=== PATIENT | male | born 1955 | race Caucasian/White ===

== ENCOUNTER 2018-07-15 12:44 | Emergency (ER) | payer MEDICARE, MEDICAID ==
[2018-07-15 13:30] VITALS: BP 118/76
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
--- NOTE | 2018-07-15 14:11 | RAD ---
HISTORY: right hip pain COMPARISONS: November 28, 2016 VIEWS: 3 , Frontal view of the pelvis with frontal and frog-leg views of the right hip FINDINGS: BONE DENSITY: Normal. BONES: There is no displaced fracture. JOINTS: There is moderate osteoarthritis of the right hip. ALIGNMENT: There is no dislocation. SOFT TISSUES: Unremarkable. OTHER FINDINGS: None. IMPRESSION: OSTEOARTHRITIS. NO ACUTE OSSEOUS INJURY. IF SYMPTOMS PERSIST, RECOMMEND REPEAT IMAGING.
== END 2018-07-15 14:31 | disposition home or self-care (01) ==
LOC: UCCORT 12:44
DX: S70.01XA Contusion of right hip, initial encounter (principal); S30.0XXA Contusion of lower back and pelvis, initial encounter; W19.XXXA Unspecified fall, initial encounter; Y92.9 Unspecified place or not applicable; M16.11 Unilateral primary osteoarthritis, right hip; Z88.8 Allergy status to other drugs, medicaments and biological substances; Z88.5 Allergy status to narcotic agent
CPT/HCPCS: 99211; G0463

== ENCOUNTER 2019-06-16 11:45 | Inpatient (IN) | payer MEDICARE, MEDICAID ==
--- NOTE | 2019-06-05 23:00 | HP ---
AMENDED REPORT NOW INCLUDES DESIGNATED COSIGNER HISTORY AND PHYSICAL: DATE OF ADMISSION/SURGERY: 06/16/19 DATE OF OFFICE VISIT: 06/05/19 ATTENDING SURGEON: Ileana Espino MD.* (DICTATED BY MAUREEN MEDEIROS) PROCEDURE: Right total hip replacement. CHIEF COMPLAINT: Right hip pain. HISTORY OF PRESENT ILLNESS: Mr. Schmidt is a 64-year-old gentleman who reports of 1-year severe right hip pain, this is a 6 to 7/10 pain in his right groin and lateral hip. He has increased pain with rotating the hip, walking, and standing; decreased pain with antiinflammatories and pain pills in the past. He has tried physical therapy. He has had a hip injection but the pain relief only lasted 10 days. At this point, he failed conservative treatment. He would like to proceed with a total hip arthroplasty. PAST MEDICAL HISTORY: 1. Prior left open tib-fib fracture. 2. Posttraumatic arthritis in the left ankle. 3. PVCs and arrhythmia. 4. History of alcohol abuse. 5. Decreased hearing. 6. Osteoarthritis. 7. Depression. 8. Anxiety. 9. Right renal cyst. 10. Asthma. 11. Diverticulitis. 12. Hiatal hernia. 13. Spinal stenosis. PAST SURGICAL HISTORY: 1. He has had left ankle surgery x8. 2. Appendectomy. 3. Pilonidal cyst. 4. Bilateral hernia repair. 5. Tooth extraction. 6. Cardiac cath in 2002 and 2009. 7. 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 8. Atrial septal defect repair in 2017. 9. 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 MEDICATIONS: 1. Albuterol inhaler 2 puffs up to 4 times a day as needed. 2. Vitamin D high potency 1000 units 1 p.o. daily. 3. Multi Complete daily vitamins. 4. Prilosec OTC. 5. Calcium. 6. Biotin. 7. Fish oil. 8. Cinnamon. ALLERGIES: CODEINE, LATEX, XANAX, and ALCOHOL. FAMILY HISTORY: Positive for coronary artery disease, diabetes, hypertension, cancer, and stroke. SOCIAL HISTORY: He is retired. He lives with his . He is a former smoker of 3 packs per day x24 years, but he quit 30 years ago. History of alcohol abuse. Also quit smoking 32 years ago. No recreational drug use. REVIEW OF SYSTEMS: General: Negative for fevers, chills, night sweats, unexplained weight loss or gain. No known anesthesia problems. HEENT: Negative for headache, lightheadedness, syncopal episodes, visual changes. Integumentary: Negative for abrasions, lesions, open wounds. Cardiothoracic: Positive for palpitations. Negative for hypertension, chest pain, or edema. Respiratory: Positive for shortness of breath on exertion. Negative for chronic cough, wheezing. GI: Negative for nausea, vomiting, diarrhea, constipation. Positive for GERD. : Positive for enlarged prostate. Positive for renal cyst on the right kidney. Negative for nocturia, urinary frequency, urgency, history of UTIs, kidney problems. Musculoskeletal: Positive for right hip pain. Positive for previous lumbar compression fracture. Negative for chronic neck pain. 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 Positive for anxiety. Negative for history of stroke, seizures, poor balance, or depression. Endocrine: Negative for diabetes, thyroid issues. Hematologic: Negative for easy bruising, anemia , bleeding disorders, history of DVT. ID: Negative for history of MRSA, hep C , or HIV. PHYSICAL EXAMINATION GENERAL: Well-developed, well-nourished 64-year-old male in no acute distress. VITAL SIGNS: Height 67 inches, weight 220 pounds. Pulse 70, BP 142/80, respirations 18, temperature 97.8, pain 4, BMI 34.5. HEENT: Normocephalic, atraumatic. PERRLA. Extraocular movements intact. NECK: Supple. No palpable lymph nodes. Throat is clear. PULMONARY: Lungs are clear to auscultation bilaterally. No wheezes, rales, or rhonchi. CARDIO: Regular rate and rhythm. S1 and S2 normal. No murmurs, rubs, or gallops. No edema. ABDOMEN: Positive bowel sounds, soft, nontender. NEUROLOGIC: A and O x3. Cranial nerves II through XII intact. Sensation is intact to light touch. MUSCULOSKELETAL: Right lower extremity: The patient's skin is intact. No abrasions or open wounds. No palpable masses or lymph nodes. Slight tenderness along the trochanteric bursa. Hip flexion is 90 degrees with groin pain, 0 degrees internal rotation, and 30 degrees external rotation with severe groin pain. Decreased sensation along the plantar foot, 5/5 ankle dorsiflexion and plantarflexion strength, and 2+ palpable DP pulse. No edema, varicosities, or hyperreflexia. DIAGNOSTIC STUDIES: Radiographs: Multiple views of the patient's right hip shows advanced arthritis with medial joint space narrowing, osteophyte formation , and subchondral sclerosis. IMPRESSION: Right hip severe osteoarthritis. PLAN: The patient is scheduled to undergo right total hip arthroplasty with Dr. Espino on 06/16/19. Dr. Espino went over the procedure, as well as the risks and benefits with the patient. He elected to proceed. He will return to the office 10 to 14 days postop for followup and suture removal. Upon discharge from the hospital, he will have a prescription for the postoperative pain management. MAUREEN OBRIEN [id number]/CPS #: [id number] MTDKorey
[~2019-06-16 11:45] MED LIST: Buffered Lidocaine 1% SYRIN* 1 ML/SYRINGE INTRADERM ONE; Famotidine IV* 10 MG/ML 2 ML (20 mg) IV ONE; Famotidine IV* 10 MG/ML 2 ML (20 mg) ONE; Gabapentin CAP(*) 300 MG ONE; Gabapentin CAP(*) 300 MG PO ONE; Lactated Ringers 1000 ML Bag* 1,000 ML IV SCH; Midazolam* 1 MG/ML 5 ML VIAL (5 MG) ONE; Tranexamic Acid 1,000 MG in NS 0.9% 50 ML* (outpatient use) IV SCH; ceFAZolin 2 GM in NS PREMIX(*) 2 GM/100 ML BAG IVPB ONE; fentaNYL* 50 MCG/ML 2 ML VIAL (100 MCG VIAL) ONE
--- OUTSIDE RECORDS SUMMARY | 2019-06-16 11:53 | XMS REPORT | Continuity of Care Document ---
:1955 External Reference #:[id number] Author Name Azalea Luisa Care Team Providers Name Role Phone Lalo Fox MD Primary Care Physician Unavailable Payers Date Identification Numbers Payment Provider Subscriber Policy Number: [id number] Medicare John Schmidt PayID: [id number] [address] [place] [address] Expires: 2018 PayID: [id number] Medicare John Schmidt [address] [place] [address] Effective: 2007 Policy Number: [id number] Medicare John Schmidt Expires: 2018 PayID: [id number] [address] [place] [address] Policy Number: [id number] Medicaid John Schmidt PayID: [id number] [address] [place] [address] Problems Active Problems Provider Date Localized, primary osteoarthritis of the pelvic Ileana Tere Espino Onset: 05/2018 region and thigh Neck pain Lalo Layne M.D. Onset: 05/14/2016 Degeneration of lumbar intervertebral disc Lalo Layne M.D. Onset: 2015 Family History Date Family Member(s) Observation Comments General Heart Disease General Diabetes General Hypertension General Stroke General Cancer : (age 43 Father due to CHF history of 2 MIs and Years) ETOH abuse,diabetes : (age 62 Mother due to Cancer Years) Maternal Uncles [place] stroke Social History Type Date Description Comments Sex Unknown Marital Status Significant Other Lives With Spouse Occupation Retired ETOH Use Recovering alcoholic Tobacco Use Start: Unknown End: Patient is a former quit 34 yrs ago Unknown smoker Recreational Drug Use Denies Drug Use Smoking Status Reviewed: 06/05/19 Patient is a former quit 34 yrs ago smoker Exercise Type/Frequency Does not exercise Allergies, Adverse Reactions, Alerts Active Allergies Reaction Severity Comments Date Codeine rash 09/29/2008 Latex rash-red streaking 09/29/2008 Xanax 09/29/2008 Alcohol 10/17/2018 Medications Active Medications SIG Qnty Indications Ordering Date Provider Hospital Bed 1 hospital bed s/p 1units Ileana Espino, 05/25/2019 hip replacement dx: Tere z47.1 67" 215lbs Knee Scooter use as needed for M19.172 Prasad Gonzalez, 02/06/2019 non-weightbearing M.Vale Albuterol Inhaler 2 Puffs Up To qid 3units Emilia S. 11/17/2008 prn Tere Kelly Vitamin D High 1 by mouth every Unknown Potency day 1000Unit Capsules Multi Complete daily Unknown Capsules Prilosec OTC Unknown Calcium Unknown Biotin Unknown Fish Oil Unknown Cinnamon Unknown History Medications Ativan 1 po tid prn 90tabs Emilia S. 05/05/2009 - 1mg Tablets Tere Kelly 06/04/2019 Metoprolol 1 PO bid 180tabs Ronnataaparna S. 12/17/2008 - 12.5mg Tere Kelly 12/17/2008 Tablets ER Metoprolol 1 PO qd Emilia S. 12/17/2008 - 12.5mg Tere Kelly 01/13/2009 Tablets ER Naprosyn 1 PO bid 50tabs Ronnataybbrandon S. 09/29/2008 - 500mg Tablets Tere Kelly 01/13/2009 Tylenol prn 100tabs Ronnataybbrandon S. 09/29/2008 - 325mg Tablets Tere Kelly 01/13/2009 Paxil 1 po qd 30tabs Unknown - 20mg Tablets 05/14/2016 Vital Signs Date Vital Result Comment 06/05/2019 8:59am Height 67 inches 5'7" Weight 220.00 lb Heart Rate 70 /min BP Systolic 142 mmHg BP Diastolic 80 mmHg Respiratory Rate 18 /min Body Temperature 97.0 F Pain Level 4 BMI (Body Mass Index) 34.5 kg/m2 12/02/2018 8:25am Height 67 inches 5'7" Heart Rate 74 /min BP Systolic 130 mmHg BP Diastolic 78 mmHg Body Temperature 97.5 F Pain Level 8 10/31/2018 9:54am Height 67 inches 5'7" Weight 214.38 lb Heart Rate 67 /min BP Systolic 118 mmHg BP Diastolic 78 mmHg Respiratory Rate 20 /min Pain Level 7 BMI (Body Mass Index) 33.6 kg/m2 10/17/2018 9:23am Height 67 inches 5'7" Weight 223.00 lb Heart Rate 76 /min BP Systolic 122 mmHg BP Diastolic 76 mmHg Body Temperature 97.6 F Pain Level 8 BMI (Body Mass Index) 34.9 kg/m2 05/14/2016 9:29am Height 67 inches 5'7" Weight 208.00 lb Heart Rate 78 /min BP Systolic Sitting 120 mmHg BP Diastolic Sitting 80 mmHg Pain Level 4 BMI (Body Mass Index) 32.6 kg/m2 03/31/2015 1:03pm Height 67 inches 5'7" Weight 213.00 lb Heart Rate 65 /min BP Systolic 128 mmHg BP Diastolic 79 mmHg Pain Level 7 BMI (Body Mass Index) 33.4 kg/m2 03/18/2015 11:20am Height 67 inches 5'7" Weight 213.00 lb Pain Level 6 BMI (Body Mass Index) 33.4 kg/m2 12/10/2014 10:08am Height 67 inches 5'7" Weight 213.00 lb Heart Rate 75 /min BP Systolic Sitting 126 mmHg BP Diastolic Sitting 76 mmHg Pain Level 7 BMI (Body Mass Index) 33.4 kg/m2 05/05/2009 1:24pm Weight 200.00 lb Heart Rate 80 /min BP Systolic Sitting 120 mmHg BP Diastolic Sitting 82 mmHg Respiratory Rate 16 /min 04/06/2009 4:23pm Weight 203.00 lb Heart Rate 62 /min BP Systolic Sitting 110 mmHg BP Diastolic Sitting 70 mmHg Respiratory Rate 16 /min 01/13/2009 9:07am Weight 202.00 lb Heart Rate 72 /min BP Systolic Sitting 130 mmHg BP Diastolic Sitting 80 mmHg Respiratory Rate 16 /min 11/17/2008 8:39am Height 67 inches 5'7" Weight 222.00 lb Heart Rate 76 /min BP Systolic Sitting 130 mmHg R BP Diastolic Sitting 80 mmHg R BMI (Body Mass Index) 34.8 kg/m2 09/29/2008 10:38am Height 67 inches 5'7" Weight 217.00 lb Heart Rate 89 /min BP Systolic Sitting 124 mmHg R BP Diastolic Sitting 80 mmHg R BMI (Body Mass Index) 34.0 kg/m2 Results Test Date Facility Test Result H/L Range Note Laboratory test 11/28/2018 [facility] Erythrocyte Sed 10 mm/Hr N 0-[address] [place] [address] [phone] C Reactive Protein 4.60 mg/L N <8.01 Procedures Date Code Description Status 03/18/2017 31574 Holter Monitor Review (24 hr) review & interp only Completed 03/12/2017 83531 ECG Monitor/Recording W/Visual Superimposition Scanning Completed 05/18/2009 62271 Mobile Cardiovascular Telemetry Over 24 HR Up To 30 Days Completed 04/21/2009 62104 Mobile Cardiovascular Telemetry Over 24 HR Up To 30 Days Completed 04/06/2009 12009 EKG Tracing & Interpretation Completed 01/13/2009 86591 EKG Tracing & Interpretation Completed 01/04/2009 41652 Color Doppler Completed 01/04/2009 56053 Pulse Doppler & Continuous Wave Completed 01/04/2009 86713 Echocardiogram Completed 01/04/2009 04619 ECHO Transthoracic, Real-Time 2D With Doppler And Color Completed Flow 12/14/2008 99071 Stress Test Supervsn W/Out I/R Completed 12/14/2008 86318 Treadmill Interp/Report Only Completed 12/14/2008 27599 Treadmill Interp/Report Only Completed 11/17/2008 80011 Holter Monitor Interpretation Completed 11/05/2008 38392 Color Doppler Completed 11/05/2008 14605 Pulse Doppler & Continuous Wave Completed 11/05/2008 43311 Pulse Doppler & Continuous Wave Completed 11/05/2008 60604 Echocardiogram Completed 09/29/2008 58668 EKG Tracing & Interpretation Completed 09/29/2008 21103 EKG Tracing & Interpretation Completed Encounters Type Date Location Provider Dx Diagnosis Office Visit 12/02/2018 [facility] Prasad Gonzalez, M19.172 Post-traumatic 8:15a [facility] oste[facility], left ankle and foot Office Visit 10/31/2018 Orthopedic Ileana Espino, M25.551 Pain in right hip 9:30a [facility] M16.11 Unilateral primary osteoarthritis, right hip M19.172 Post-traumatic osteoarthritis, left ankle and foot Office Visit 10/30/2018 Orthopedic Prasad M19.172 Post-traumatic 10:45a [facility] osteoarthritis, left C.M.A. ankle and foot Office Visit 10/17/2018 Orthopedic Prasad M16.11 Unilateral primary 9:00a [facility] osteoarthritis, C.M.A. right hip M19.172 Post-traumatic osteoarthritis, left ankle and foot Office Visit 05/14/2016 Neurosurgery Lalo M51.36 Other 9:15a [facility] M.D. intervertebral disc degeneration, lumbar region M54.2 Cervicalgia Office Visit 03/31/2015 1:00p Orthopedic Ileana Espino, 840.4 Sp[facility] Strains Rotator Cuff (Capsule) 719.41 Pain Joint Shoulder Region Office Visit 03/18/2015 11:15a Orthopedic Ileana Espino 840.4 [facility] Strains Rotator Cuff (Capsule) Office Visit 12/10/2014 9:45a Orthopedic Ileana Espino, 719.41 Pain Joint [facility] .DLaura Shoulder Region [place] 840.4 Sprains & Strains Rotator Cuff (Capsule) 715.00 Osteoarthrosis Generalized Site Unspec Office Visit 08/12/2012 10:00a Arabella Sheehan 728.87 Muscle Weakness [facility]rolog[facility] [place] 782.0 Skin Sensation Disturbance 724.2 Lumbago Office Visit 05/05/2009 1:20p [facility] Qutaybeh S. 785.1 Palpitations Tere Kelly 785.0 Tachycardia Unspec Office Visit 04/06/2009 4:10p [facility] Qutaybeh S. 785.1 Palpitations Tere Kelly 785.0 Tachycardia Unspec 427.69 Premature Beats Other Office Visit 01/13/2009 9:00a [facility] Qutaybeh S. 785.1 Palpitations Tere Kelly 786.50 Pain Chest Unspec 785.0 Tachycardia Unspec 745.5 Atrial Septal Defect Ostium Secundum Type Office Visit 11/17/2008 8:40a [facility] Qutaybeh S. 785.1 Palpitations Tere Kelly 427.69 Premature Beats Other 785.0 Tachycardia Unspec 427.61 Premature Beats Supraventricular 780.4 Dizziness & Giddiness 745.5 Atrial Septal Defect Ostium Secundum Type Office Visit 09/29/2008 10:20a [facility] Qutaybeh S. 785.1 Palpitations Tere Kelly 794.31 Electrocardiogram (ECG) (EKG) Abnormal 785.0 Tachycardia Unspec 780.4 Dizziness & Giddiness Plan of Treatment Future Appointment(s):06/29/2019 9:15 am - Ileana Espino M.D. at [facility]11/13/2019 2:00 pm - John Valenzuela M.D. at [facility]06/16/2019 12:15 pm - Austin Lang PA-C at [facility]06/16/2019 12:15 pm - DANIA Gallo at [facility]06/16/2019 12:15 pm - Ileana Espino M.D. at [facility]06/05/2019 - Ileana Espino M.D.M16.11 Unilateral primary osteoarthritis, right hipFollow up:10-14 days post-opM25.551 Pain in right hip
[2019-06-16] MEDS ORDERED: Bupivacaine 0.25% W/EPI* 10 ML SDV ONE (13:29)
[2019-06-16] MEDS ORDERED: Rocuronium* 10 MG/ML VIAL ONE ×2 (13:50→14:28)
[2019-06-16] MEDS ORDERED: KETAMINE HCL* 50 MG/ML 10 ML VIAL ONE (13:59)
[2019-06-16] MEDS ORDERED: Ketorolac INJ* 30 MG/ML 1 ML VIAL ONE (14:36)
[2019-06-16] MEDS ORDERED: Ondansetron INJ* 2 MG/ML VIAL ONE (14:36)
[2019-06-16] MEDS ORDERED: Dexamethasone IV* 4 MG/ML 1 ML (4 MG) ONE (14:36)
[2019-06-16] MEDS ORDERED: DiMENhydriNATE IV* 50 MG/ML VIAL ONE (14:36)
[2019-06-16] MEDS ORDERED: Propofol* 10 MG/ML 20 ML BTL ONE ×2 (14:36→16:22)
[2019-06-16] MEDS ORDERED: Succinylcholine* 20 MG/ML 10 ML VIAL ONE (14:36)
[2019-06-16] MEDS ORDERED: Lidocaine 2% PF * 5 ML VIAL ONE (14:36)
[2019-06-16] MEDS ORDERED: HYDROcodone/ACETAMIN 5-325 MG* 1 TAB PO PRN (14:53)
[2019-06-16] MEDS ORDERED: DiMENhydriNATE IV* 50 MG/ML VIAL IV PUSH PRN (14:53)
[2019-06-16] MEDS ORDERED: Levalbuterol 0.63MG/3ML NEB* UNIT OF USE INH PRN (14:53)
[2019-06-16] MEDS ORDERED: Naloxone* 0.4 MG/ML 1 ML VIAL IV PRN (14:53)
[2019-06-16] MEDS ORDERED: HYDROmorphone INJ1* 1 MG/ML SYRINGE ONE ×3 (15:40→18:06)
[2019-06-16] MEDS ORDERED: Midazolam* 1 MG/ML 2 ML VIAL (2 MG) ONE (16:17)
[2019-06-16] MEDS ORDERED: diPHENhydraMINE IV* 50 MG/ML 1 ml VIAL (BENADRYL) IV PRN (16:46)
[2019-06-16] MEDS ORDERED: Bisacodyl SUPP* 10 MG SUPP PR PRN (16:46)
[2019-06-16] MEDS ORDERED: Morphine INJ* 2 MG/ML 1 ML SYRINGE (TWO MG - NEW SYRINGE VERSION) IV PRN (16:46)
[2019-06-16] MEDS ORDERED: Magnesium Hydroxide LIQ* 30 ML UDC PO PRN (16:46)
[2019-06-16] MEDS ORDERED: Ondansetron INJ* 2 MG/ML VIAL IV PRN (16:46)
[2019-06-16] MEDS ORDERED: PTO: Albuterol HFA INHALER* 8 gm MDI INH PRN (16:51)
[2019-06-16] MEDS ORDERED: Albuterol 2.5 MG/3 ML NEB.SOL* (0.083%) INH PRN (16:51)
[2019-06-16] MEDS ORDERED: Mometasone 220 MCG MDI INH PRN (16:51)
[2019-06-16] MEDS ORDERED: Morphine ORAL CONCENTRATE* 5 MG/0.25 ML ORAL.SYRIN PO PRN (16:51)
[2019-06-16] MEDS ORDERED: Lactated Ringers 1000 ML Bag* 1,000 ML IV SCH (17:00)
[2019-06-16] MEDS: HYDROmorphone INJ1* 1 MG/ML SYRINGE IV PRN ×2 (17:01→17:06)
[2019-06-16] MEDS ORDERED: traMADol TAB* 50 MG ONE (18:07)
[2019-06-16] MEDS: traMADol TAB* 50 MG PO PRN (18:10)
--- NOTE | 2019-06-16 19:53 | OP ---
Operative Report - Blank - Operative Report Date of Operation: 06/16/19 Note: DANNY SANDS 1955 Date Of Surgery: 06/16/19 Ileana Espino MD Behavior Specialist: Austin REDDY did help throughout the procedure with preparation of the hip, wound retraction, manipulation of the hip, and wound closure. Anesthesiologist: Chidi Dubois MD Anesthesia Type: General Preoperative Diagnosis: Right severe degenerative osteoarthritis of the hip Postoperative Diagnosis: As above Procedure Performed: Right Total Hip Arthroplasty Complications: None Specimen: Femoral head and acetabular reamings sent to pathology. Hardware used: This is uncemented Sc[place]ey total hip arthroplasty hardware for the femur a size 3 accolade II with 127 neck femoral component, for the acetabulum a size 50 D trident II tritanium cluster hole shell, for the insert a size 32 D trident x3 polyethylene insert, and for the femoral head a size 32 + 8 V40 femoral head. Brief history/Indication: DANNY SANDS was known in clinic and had a history of severe right hip pain. He failed conservative treatment with anti- inflammatories, pain pills, intra-articular injections and physical therapy. He elected to undergo right total hip arthroplasty due to continued pain and decreased quality of life. Radiographs showed severe end stage osteoarthritis of the hip with bone on bone contact. Informed consent was obtained from the patient. He understood the risks of surgery included but were not limited to: bleeding, infection, damage to nearby structures, intraoperative fracture, nerve palsy, failure of the hardware, early loosening, stiffness or loss of motion, dislocation, leg length discrepancy, anesthesia complications, stroke, heart attack, blood clot and . He wished to proceed. Intra-Operative findings: Intraoperatively the patient was noted to have severe loss of cartilage of the acetabulum and femoral head. He had extensive osteophyte formation around the acetabulum. Description of the Procedure: DANNY SANDS was identified in the preanesthesia unit. His right hip was marked as the correct operative side. Informed consent was signed and placed in the chart. The patient was taken to the operating room and placed under anesthesia without complication. A simons catheter was placed. The patient was placed on the peg board with all bony prominences well padded. The right lower extremity was prepped and draped in the usual sterile fashion. Preoperative time-out was made to correctly identify the patient, side and site. Appropriate intraoperative antibiotics were given within one hour of incision. A standard posterior incision was made and carried sharply down to the lateral fascia. A new 10 blade was used to make an incision in the fascia in line with the skin incision. A charnley retractor was placed. The piriformis and conjoined tendons were identified and elevated off the posterolateral femur using electrocautery. These were tagged with number 5 Ethibond. Next electrocautery was used to make a posterolateral capsular flap and this was tagged with number 5 Ethibonds. The hip was carefully dislocated. Lesser trochanter to the center of the femoral head was measured at 60 mm. The oscillating saw was used to make the femoral neck cut. The femoral head was carefully removed. The femur was retracted anteriorly and the acetabular retractors were placed. Long-handled knife was used to sharply remove any remaining labrum from the acetabular rim. The acetabulum was sequentially reamed up to a size 49. A bleeding subchondral bone bed was obtained. A trial liner was placed and had excellent fit and stability. A 50D trident II tritanium cup was placed and had excellent stability with appropriate anteversion and abduction angle. A size 32 D polyethylene liner was impacted into the acetabular shell. The liner was checked for stability and was stable. Next attention was turned to preparation of the femoral canal. A canal finder was used to enter the proximal femur. The femoral canal was sequentially broached up to a size 3 femoral broach trial. A trial neck and 32+ 4 trial femoral head was chosen. Lesser trochanter to center of the femoral head measurement was satisfactory. The hip was reduced and taken through a range of motion. The hip was stable in all positions with good soft tissue tension and appropriate leg lengths. The hip was dislocated and all trials were removed. The final implant chosen was a accolade II size 3 with 127 neck angle. This stem was impacted into the femoral canal without difficulty. The stem was stable with appropriate anteversion. The femoral head chosen was a 32 + 8 LFIT V40 femoral head. The head was impacted onto the femoral neck without difficulty. The final lesser trochanter to center of the femoral head measurement was satisfactory. The hip was reduced and taken through a range of motion. The hip was stable in all positions with good soft tissue tension and appropriate leg lengths. The hip was copiously irrigated with sterile saline. The previously tagged capsule and tendons were repaired to the posterolateral femur through two trochanteric drill holes. The lateral fascia layer was closed using number 1 vicryls. The rest of the incision was closed in a layered fashion using 0 and 2-0 vicryls. The skin was closed using 3-0 monocryl suture and Dermabond. Sterile adaptic, 4x4s and paper tape was used to cover the incision. The patients anesthesia was reversed without difficulty. He was taken to the PACU in stable condition. Intended weight-bearing will be as tolerated with posterior hip precautions.
[2019-06-16] MEDS: Morphine TAB Extended Release (*) 15 MG TAB.ER PO SCH (22:54)
[2019-06-16] MEDS: Magnesium Hydroxide LIQ* 30 ML UDC PO SCH (22:55)
[2019-06-16] MEDS: Pantoprazole TAB * 40 MG TAB PO SCH (22:55)
[2019-06-16] MEDS: ceFAZolin 1 GM ADVAN(*) 1 GM in NS 0.9% 50 ML* 50 ML IVPB SCH (22:56)
[2019-06-16] MEDS: Docusate CAP* 100 MG PO SCH (22:56)
[2019-06-17] MEDS: ceFAZolin 1 GM ADVAN(*) 1 GM in NS 0.9% 50 ML* 50 ML IVPB SCH ×2 (05:30→14:00)
[2019-06-17 06:29] LABS: Hematocrit 38 % (42-52); Hemoglobin 13.2 g/dL (14.0-18.0); Mean Platelet Volume 8.9 fL (7.4-10.4); Platelet Count 200 10^3/uL (150-450)
[2019-06-17 06:54] LABS: Calcium 9.2 mg/dL (8.6-10.3); EGFR African American 91.6 (>60); EGFR Non-African American 75.7 (>60); Potassium 3.9 mmol/L (3.5-5.0)
[2019-06-17] MEDS: traMADol TAB* 50 MG PO PRN ×2 (07:36→17:46)
[2019-06-17] MEDS: Magnesium Hydroxide LIQ* 30 ML UDC PO SCH ×2 (08:58→22:07)
[2019-06-17] MEDS: Magnesium Oxide TAB* 400 MG PO SCH (08:59)
[2019-06-17] MEDS: Rivaroxaban TAB(*) 10 MG PO SCH (08:59)
[2019-06-17] MEDS: Morphine TAB Extended Release (*) 15 MG TAB.ER PO SCH ×2 (08:59→22:07)
[2019-06-17] MEDS: Docusate CAP* 100 MG PO SCH ×2 (09:00→22:08)
[2019-06-17] MEDS: Pantoprazole TAB * 40 MG TAB PO SCH ×2 (09:00→22:07)
[2019-06-17] MEDS: Vitamin THERAPEUTIC TAB PO SCH (09:00)
--- NOTE | 2019-06-17 11:08 | PN ---
Progress Note - Progress Note Date of Service: 06/17/19 SOAP: Subjective: []Pt seen at bedside. He feels well, hip pain rated 3/10. Denies CP, SOB, dizziness or nausea. Using Morphine ER 15 mg BID and tramadol 50 mg q 6 hr prn for pain control. Objective: []Gen: Appears well, NAD RLE: Right hip dressing CDI, thigh is soft, DF/PF intact, DP2+, sensation intact to light touch distally. Calves supple and and nontender without erythema, edema or palpable cords Assessment: []POD 1 sp RTH Plan: []WBAT PT/OT Xarelto 10 mg daily x 30 days post op Vital Signs Temp 97.9 F 06/17/19 07:45 Pulse 64 06/17/19 07:45 Resp 18 06/17/19 10:15 BP 114/65 06/17/19 07:45 Pulse Ox 96 06/17/19 08:00 Intake & Output 06/16/19 06/17/19 06/17/19 18:59 06:59 18:59 Intake Total 2400 2592 Output Total 750 1975 300 Balance 1650 617 -300 Weight 220 lb Intake: IV Fluids 2200 980 LR 2200 980 IVPB 52 ABX - CEFAZOLIN 52 Oral 200 1560 Output: Urine 300 [place] 750 1975 Other: # Bowel Movements 0 Laboratory Last Values Hgb 13.2 g/dL (14.0-18.0) L 06/17/19 05:49 Hct 38 % (42-52) L 06/17/19 05:49 Plt Count 200 10^3/uL (150-450) 06/17/19 05:49 MPV 8.9 fL (7.4-10.4) 06/17/19 05:49 Sodium 138 mmol/L (135-145) 06/17/19 05:49 Potassium 3.9 mmol/L (3.5-5.0) 06/17/19 05:49 Chloride 103 mmol/L (101-111) 06/17/19 05:49 Carbon Dioxide 28 mmol/L (22-32) 06/17/19 05:49 Anion Gap 7 mmol/L (2-11) 06/17/19 05:49 BUN 13 mg/dL (6-24) 06/17/19 05:49 Creatinine 1.00 mg/dL (0.67-1.17) 06/17/19 05:49 Est GFR ( Amer) 91.6 (>60) 06/17/19 05:49 Est GFR (Non-Af Amer) 75.7 (>60) 06/17/19 05:49 BUN/Creatinine Ratio 13.0 (8-20) 06/17/19 05:49 Glucose 147 mg/dL (70-100) H 06/17/19 05:49 Calcium 9.2 mg/dL (8.6-10.3) 06/17/19 05:49
[2019-06-18] MEDS: traMADol TAB* 50 MG PO PRN ×3 (03:02→15:33)
[2019-06-18 05:39] LABS: Hematocrit 35 % (42-52); Hemoglobin 12.1 g/dL (14.0-18.0); Mean Platelet Volume 8.7 fL (7.4-10.4); Platelet Count 168 10^3/uL (150-450)
[2019-06-18] MEDS: Vitamin THERAPEUTIC TAB PO SCH (08:23)
[2019-06-18] MEDS: Magnesium Oxide TAB* 400 MG PO SCH (08:23)
[2019-06-18] MEDS: Morphine TAB Extended Release (*) 15 MG TAB.ER PO SCH (08:24)
[2019-06-18] MEDS: Rivaroxaban TAB(*) 10 MG PO SCH (08:24)
[2019-06-18] MEDS: Pantoprazole TAB * 40 MG TAB PO SCH (08:24)
[2019-06-18] MEDS: Docusate CAP* 100 MG PO SCH (08:24)
[2019-06-18] MEDS: Magnesium Hydroxide LIQ* 30 ML UDC PO SCH (08:26)
--- NOTE | 2019-06-18 11:09 | PN ---
Progress Note - Progress Note Date of Service: 06/18/19 SOAP: Subjective: []Pt seen and examined at bedside. He feels well without CP, SOB, dizziness or nausea. Pain is well controlled. He has no other complaints. Objective: []Gen: Appears well, NAD RLE: Right hip dressing changed and incision is CDI, thigh is soft, DF/PF intact , DP2+, sensation intact to light touch distally. Calves supple and and nontender without erythema, edema or palpable cords Assessment: []POD 2 sp RTH Plan: []WBAT PT/OT Xarelto 10 mg daily x 30 days post op. 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 to ensure he does not need to be on 20 mg qd post op, as patient mentions today that he has taken this dose in the past when he had an ASD repair DC home today Vital Signs Temp 98.6 F 06/18/19 11:04 Pulse 66 06/18/19 11:04 Resp 18 06/18/19 11:04 BP 116/65 06/18/19 11:04 Pulse Ox 94 06/18/19 11:04 Intake & Output 06/17/19 06/18/19 06/18/19 18:59 06:59 18:59 Intake Total 2201 1330 Output Total 900 1250 200 Balance 1301 80 -200 Intake: IV Fluids 891 ABX - CEFAZOLIN 107 LR 784 Oral 1310 1330 Output: Urine 900 1250 200 Other: # Bowel Movements 0 Laboratory Last Values Hgb 12.1 g/dL (14.0-18.0) L 06/18/19 05:16 Hct 35 % (42-52) L 06/18/19 05:16 Plt Count 168 10^3/uL (150-450) 06/18/19 05:16 MPV 8.7 fL (7.4-10.4) 06/18/19 05:16 Sodium 138 mmol/L (135-145) 06/17/19 05:49 Potassium 3.9 mmol/L (3.5-5.0) 06/17/19 05:49 Chloride 103 mmol/L (101-111) 06/17/19 05:49 Carbon Dioxide 28 mmol/L (22-32) 06/17/19 05:49 Anion Gap 7 mmol/L (2-11) 06/17/19 05:49 BUN 13 mg/dL (6-24) 06/17/19 05:49 Creatinine 1.00 mg/dL (0.67-1.17) 06/17/19 05:49 Est GFR ( Amer) 91.6 (>60) 06/17/19 05:49 Est GFR (Non-Af Amer) 75.7 (>60) 06/17/19 05:49 BUN/Creatinine Ratio 13.0 (8-20) 06/17/19 05:49 Glucose 147 mg/dL (70-100) H 06/17/19 05:49 Calcium 9.2 mg/dL (8.6-10.3) 06/17/19 05:49
[2019-06-18 11:10] VITALS: BP 116/65
--- NOTE | 2019-06-18 12:09 | DS ---
Orthopedic Discharge Summary - Discharge Summary Date of Admission:06/16/19 Date of Discharge: 06/18/19 Date of Surgery: 06/16/19 Attending Orthopedic Provider: Dr Espino Pre-operative Diagnosis: left hip osteoarthritis Operative Procedure: left total hip replacement Disposition of Patient: home Condition of Patient: stable History: DANNY SANDS is a 64 year old M with years of increasingly severe left hip pain. Patient has failed conservative management and has elected to undergo a left total hip replacement Hospital Course: DANNY was admitted to [facility] on 06/16/19. Patient underwent a left total hip replacement without complication followed by a brief recovery in PACU and transfer to the Short Stay Surgical Unit in stable condition. Our hospitalist service, physical therapy and occupational therapy also participated in this patients care. Post-op day 1: patient was alert and in no acute distress. Dressing was clean, dry and intact. Operative extremity dorsiflexion and plantarflexion intact, sensation intact to light touch distally , DP2+. Post-op day two: dressing was changed, incision was clean, dry and intact. Patient was deemed to be medically and orthopedically stable for discharge. Physical therapy goals were met. Sodium level was 130 at discharge, this needs to be rechecked within 3 days by home nursing. Home Medications Medication Instructions Recorded Confirmed Type Albuterol HFA INHALER* [Ventolin 2 puff INH QID PRN 12/24/18 06/16/19 History HFA Inhaler*] Fluticasone HFA 220 mcg(NF) 1 puff INH BID PRN 12/24/18 06/16/19 History [Flovent Hfa 220 Mcg(NF)] Albuterol 2.5MG/3ML (0.083%)* 2.5 mg INH Q6H PRN 05/06/19 06/16/19 History [Ventolin 2.5 MG/3 ML NEB.TYLER*] Morphine Sulfate 15 mg PO DAILY PRN 05/06/19 06/16/19 History Biotin 1,000 mcg PO QAM 06/15/19 06/16/19 History Cinnamon Bark [Cinnamon] 1,000 mg PO QAM 06/15/19 06/16/19 History Dmae 350 mg PO QAM 06/15/19 06/16/19 History Magnesium Oxide 500 mg PO QAM 06/15/19 06/16/19 History Multivitamin [One Daily Essential] 1 tab PO QAM 06/15/19 06/16/19 History [place]-3 Fatty Acids/Fish Oil [Fish 1 each PO QAM 06/15/19 06/16/19 History Oil 1,000 mg Softgel] Omeprazole 20 mg PO BID 06/15/19 06/16/19 History Vitamin D3 And Calcium 1 tab PO QAM 06/15/19 06/16/19 History Docusate CAP* [Colace Cap*] 100 mg PO BID PRN #90 cap 06/18/19 Rx Morphine TAB Extended Rel(*) [Ms 15 mg PO Q12H PRN #6 tab.er MDD 2 06/18/19 Rx Contin(*)] Rivaroxaban TAB(*) [Xarelto 10 mg 10 mg PO DAILY #30 tab 06/18/19 Rx (*)] traMADol TAB* [Ultram*] 50 mg PO Q6H PRN #50 tab MDD 8 06/18/19 Rx Discharge Instructions following Orthopedic Surgery: Activity: * Weight Bearing as tolerated * Continue physical therapy and occupational therapy exercises as shown * Home PT Hip replacements: Continue Hip Precautions- do not cross legs or bend greater than 90 degrees/squat Wound care: * OK to shower on post-op day 3, no bathing, swimming, or submerging wound. * Use gentle soap, pat dry. Cover with gauze, LARA wrap or tape. * Visiting home nurse to do wound checks. Call Orthopedic office for: * Increased drainage * Redness * Increased pain * Fever Go to ER with shortness of breath or chest pain. Diet: * Regular diet * Increase fluids and fiber to prevent constipation. * Continue to use stool softeners, call office if no bowel motion within 48 hours. Medications See Home Medication List in your packet for medications that you should take after discharge. DVT Prophylaxis: Xarelto Dosin mg daily x 30 days post op. This medication increases bleeding tendency Pain Control: Tramadol 50 mg tabs. tabe 1-2 tabs every 6 hours as needed for moderate pain , max 8 per day. Hold for sedation and wean off as soon as pain allows Long acting Morphine 15 mg tabs. take 1 tab every 12 hours as needed for severe pain. Wean off as soon as pain allows, hold for sedation. wean first from long acting morphine then from tramadol Antibiotics are required prior to any dental work. FOLLOW UP: Follow up with [Srinivas] Within 10-14 days, call for appointment Please call our office with any questions or concerns ([phone])
== END 2019-06-18 18:55 | disposition home health service (06) | DRG 470 ==
LOC: AA 11:49 → SSU 18:58
PROVIDERS: ADMIT Orthopaedic Surgery Adult Reconstructive Orthopaedic Surgery; ATTEND Orthopaedic Surgery Adult Reconstructive Orthopaedic Surgery
PROC: 0SR902A Replacement of Right Hip Joint with Metal on Polyethylene Synthetic Substitute, Uncemented, Open Approach (ICD-10-PCS; principal; 2019-06-16 13:45)
DX: M16.11 Unilateral primary osteoarthritis, right hip (principal); Q61.01 Congenital single renal cyst; K21.9 Gastro-esophageal reflux disease without esophagitis; X58.XXXS Exposure to other specified factors, sequela; M19.172 Post-traumatic osteoarthritis, left ankle and foot; F32.9 Major depressive disorder, single episode, unspecified; F41.9 Anxiety disorder, unspecified; J45.909 Unspecified asthma, uncomplicated; L84 Corns and callosities; M48.00 Spinal stenosis, site unspecified; Z96.21 Cochlear implant status; H91.91 Unspecified hearing loss, right ear; N40.0 Benign prostatic hyperplasia without lower urinary tract symptoms; I48.91 Unspecified atrial fibrillation; E66.9 Obesity, unspecified; G89.29 Other chronic pain; M54.9 Dorsalgia, unspecified; K22.5 Diverticulum of esophagus, acquired; G62.9 Polyneuropathy, unspecified; M25.751 Osteophyte, right hip; T14.90XS Injury, unspecified, sequela; Z88.8 Allergy status to other drugs, medicaments and biological substances; Z88.5 Allergy status to narcotic agent; Z91.040 Latex allergy status; Z82.49 Family history of ischemic heart disease and other diseases of the circulatory system; Z83.3 Family history of diabetes mellitus; Z82.3 Family history of stroke; Z87.891 Personal history of nicotine dependence; Z68.34 Body mass index [BMI] 34.0-34.9, adult; Z91.011 Allergy to milk products; Z81.1 Family history of alcohol abuse and dependence; Z82.5 Family history of asthma and other chronic lower respiratory diseases; Z80.6 Family history of leukemia; Z83.49 Family history of other endocrine, nutritional and metabolic diseases
CPT/HCPCS: 36415; 72170; 80048; 85014; 85018; 85049; 88304; 88311; A9270-GY; C1776; G8978-GP-CJ; G8979-GP-CI; G8987-GO-CI; G8988-GO-CI; G8989-GO-CI; J0330; J0690; J1100; J1170; J1240; J1885; J2250; J2405; J2704; J3010

== ENCOUNTER 2024-04-16 16:32 | Inpatient (IN) ==
[2024-04-16] MEDS: cefTRIAXone 1 gm/50 mL D5W 1 GM/50 ML BAG IV ONE (17:21)
[2024-04-16] MEDS: LACTATED RINGERS SEPSIS IV ONE (17:21)
[2024-04-16 17:23] LABS: ABS Lymphocytes 0.7 10^3/uL (1.0-4.8); ABS Monocytes 0.6 10^3/uL (0.0-1.1); ABS Neutrophils 10.4 10^3/uL (1.5-7.6); ABS Nucleated RBC 0.02 10^3/ul; Hematocrit 42.7 % (38-53); Lymphocyte % 5.6 %; Mean Corpuscular Hemoglobin 31.4 pg (27-33); Mean Corpuscular Hgb Conc 35.1 g/dL (31-36); Mean Corpuscular Volume 89.6 fL (80-97); Mean Platelet Volume 8.4 fL (7.5-11.2); Nucleated Red Blood Cells % 0.1 %/100WBC (0.0-0.8); Platelet Count 217 10^3/uL (150-450); Red Blood Count 4.76 10^6/uL (4.06-5.63); Red Cell Distribution Width 12.6 % (12-17); White Blood Count 11.7 10^3/uL (3.6-10.2)
[2024-04-16 17:37] LABS: Activated Partial Thrombo Time 29.8 seconds (26.0-38.0); INR 1.14 (0.83-1.13)
[2024-04-16 18:18] LABS: Albumin 4.4 g/dL (3.2-5.2); Albumin/Globulin Ratio 1.7 (1-3); C Reactive Protein 210.31 mg/L (<8.01); Calcium 10.1 mg/dL (8.6-10.3); Creatinine, Serum 0.96 mg/dL (0.67-1.17); Globulin 2.6 g/dL (2-4); Potassium 3.9 mmol/L (3.5-5.0); Total Bilirubin 2.2 mg/dL (0.2-1.0); eGFR CKD-EPI 86.6 (>60)
[2024-04-16 18:53] LABS: Urine Appearance Turbid; Urine Bilirubin Negative (Negative); Urine Blood 1+ (Negative); Urine Color Yellow; Urine Glucose Negative (Negative); Urine Ketones 2+ (Negative); Urine Nitrite 2+ (Negative); Urine Protein Trace (Negative); Urine Specific Gravity 1.012 (1.002-1.030); Urine Urobilinogen Negative (Negative)
[2024-04-16 19:07] LABS: Urine Bacteria 3+ /HPF (Absent); Urine Red Blood Cell 1+(3-5/hpf) /HPF (0-Trace); Urine Squamous Epithelial Cell Present /HPF (Absent); Urine White Blood Cell 3+(>20/hpf) /HPF (0-Trace)
[2024-04-16 19:09] LABS: High Sensitivity Troponin 1 Hr 16 pg/mL (<20)
[2024-04-16] MEDS ORDERED: Ondansetron 4 mg VIAL 2 MG/ML 2 ml VIAL IV PRN (21:46)
[2024-04-16] MEDS ORDERED: Polyethylene Glycol 3350 17 GM PACKET PO PRN (21:46)
[2024-04-16] MEDS ORDERED: Senna TAB 8.6 mg TAB PO PRN (21:46)
[2024-04-16] MEDS ORDERED: Albuterol 2.5mg/3 ml (0.083%) NEB.SOLN INH PRN (21:48)
[2024-04-16] MEDS ORDERED: Albuterol HFA INHALER 8 gm MDI INH PRN (21:48)
[2024-04-16] MEDS: Enoxaparin 40 MG/0.4 ML SYR SUBCUT SCH (23:02)
[2024-04-17 06:21] LABS: ABS Lymphocytes 0.7 10^3/uL (1.0-4.8); ABS Monocytes 0.6 10^3/uL (0.0-1.1); ABS Neutrophils 6.9 10^3/uL (1.5-7.6); ABS Nucleated RBC 0.04 10^3/ul; Eosinophil % 0.3 %; Hematocrit 36.5 % (38-53); Hemoglobin 12.9 g/dL (13.2-16.3); Lymphocyte % 8.3 %; Mean Corpuscular Hemoglobin 31.7 pg (27-33); Mean Corpuscular Hgb Conc 35.2 g/dL (31-36); Mean Corpuscular Volume 89.9 fL (80-97); Mean Platelet Volume 8.6 fL (7.5-11.2); Nucleated Red Blood Cells % 0.5 %/100WBC (0.0-0.8); Platelet Count 150 10^3/uL (150-450); Red Blood Count 4.06 10^6/uL (4.06-5.63); Red Cell Distribution Width 12.7 % (12-17); White Blood Count 8.2 10^3/uL (3.6-10.2)
[2024-04-17 06:41] LABS: Albumin 3.6 g/dL (3.2-5.2); Albumin/Globulin Ratio 2.1 (1-3); Calcium 8.8 mg/dL (8.6-10.3); Creatinine, Serum 0.79 mg/dL (0.67-1.17); Globulin 1.7 g/dL (2-4); Potassium 3.8 mmol/L (3.5-5.0); Total Bilirubin 1.6 mg/dL (0.2-1.0); Total Protein 5.3 g/dL (6.4-8.9); eGFR CKD-EPI 97.4 (>60)
[2024-04-17] MEDS: Mometasone 220 MCG MDI INH SCH (08:02)
[2024-04-17] MEDS: cefTRIAXone 1 gm/50 mL D5W 1 GM/50 ML BAG IV SCH (16:33)
[2024-04-18 07:21] LABS: ABS Eosinophils 0.2 10^3/uL (0.0-0.5); ABS Lymphocytes 0.9 10^3/uL (1.0-4.8); ABS Monocytes 0.6 10^3/uL (0.0-1.1); ABS Neutrophils 4.5 10^3/uL (1.5-7.6); Eosinophil % 3.8 %; Hematocrit 35.9 % (38-53); Hemoglobin 12.5 g/dL (13.2-16.3); Lymphocyte % 14.1 %; Mean Corpuscular Hemoglobin 31.7 pg (27-33); Mean Corpuscular Volume 90.5 fL (80-97); Mean Platelet Volume 8.9 fL (7.5-11.2); Platelet Count 166 10^3/uL (150-450); Red Blood Count 3.96 10^6/uL (4.06-5.63); Red Cell Distribution Width 12.7 % (12-17); White Blood Count 6.3 10^3/uL (3.6-10.2)
[2024-04-18 09:59] VITALS: BP 129/74
== END 2024-04-18 12:45 | disposition home or self-care (01) | DRG 872 ==
LOC: ED 16:32 → SUATTDRO 21:46 → EDHOLD 21:46 → MED 04-17 01:06
PROVIDERS: ADMIT Student in an Organized Health Care Education/Training Program; ATTEND Internal Medicine